=== PATIENT | male | born 1945 | race African-American/Black ===

== ENCOUNTER 2017-03-17 21:49 | Emergency (ER) | payer OTHER ==
[~2017-03-17] VITALS: Ht 165.1 cm; Wt 70.8 kg
[~2017-03-17 21:49] MED LIST: ADULT LOW DOSE81 MG PO; AMARYL4 MG PO; CITALOPRAM20 MG/10 M PO; LOPRESSOR50 PO; LOVASTAT10 PO; METFORMIN HCL500 MG PO; MOBIC7.5 MG PO; PRINIVIL20 MG PO
[2017-03-17] MEDS ORDERED: TOBRADEX ST EYE5 ML OP (23:49)
[2017-03-17] MEDS ORDERED: REFRESH CLASSI1 EACH OP (23:49)
== END 2017-03-18 00:33 | disposition home or self-care (01) ==
LOC: ER 21:49
DX: H18.821 Corneal disorder due to contact lens, right eye (principal); E11.9 Type 2 diabetes mellitus without complications; I10 Essential (primary) hypertension; F12.10 Cannabis abuse, uncomplicated; F10.99 Alcohol use, unspecified with unspecified alcohol-induced disorder; Z86.73 Personal history of transient ischemic attack (TIA), and cerebral infarction without residual deficits; Z91.041 Radiographic dye allergy status

== ENCOUNTER 2020-11-16 09:02 | Emergency (ER) | payer MEDICARE ==
[~2020-11-16] VITALS: Ht 165.1 cm; Wt 73.5 kg
[~2020-11-16 09:02] MED LIST changes: +REFRESH CLASSI1 EACH OP; +TOBRADEX ST EYE5 ML OP
[2020-11-16 09:03] VITALS: BP 149/92
[2020-11-16 09:20] LABS: ABSOLUTE NEUTROPHILS 3.6 thou/uL (1.4-8.2); WBC 5.5 thou/uL (4.0-11.0)
[2020-11-16 09:25] LABS: BASOPHILS 1.2 % (0.0-2.0); EOSINOPHILS 3.3 % (0.0-3.0); HEMATOCRIT 41.8 % (42.0-52.0); LYMPHOCYTES 23.7 % (24.0-44.0); MCH 30.4 pg (26.0-34.0); MCHC 33.6 g/dL (28.0-37.0); MCV 90.5 fL (80.0-100.0); MONOCYTES 6.6 % (1.0-8.0); PLATELET COUNT 261 thou/uL (150-400); POLYS 65.2 % (36.0-66.0); RBC 4.62 mil/uL (4.50-6.00); RDW 14.6 % (10.5-14.5)
[2020-11-16 09:34] LABS: ANION GAP 11 mmol/L (7-16); BUN 14 mg/dL (7-18); CALCIUM 9.2 mg/dL (8.5-10.1); CHLORIDE 106 mmol/L (98-107); CO2 26 mmol/L (21-32); CREATININE 1.5 mg/dL (0.7-1.3); GLUCOSE 165 mg/dL (74-106); POTASSIUM 3.8 mmol/L (3.5-5.1); SODIUM 143 mmol/L (136-145)
[2020-11-16 09:44] LABS: ALBUMIN 3.8 g/dL (3.4-5.0); SGOT 6 U/L (15-37); SGPT 12 U/L (16-63); TOTAL BILIRUBIN 0.9 mg/dL (0.2-1.0); TOTAL PROTEIN 7.7 g/dL (6.4-8.2); TROPONIN-I <0.06 ng/mL (<0.06)
[2020-11-16] MEDS ORDERED: OXYBUTYNIN 5 MG5 M2 PO (09:47)
[2020-11-16] MEDS ORDERED: GABAPENTIN 100100 MG PO (09:47)
[2020-11-16] MEDS ORDERED: CELEXA 20 MG TA20 MG PO (09:48)
[2020-11-16] MEDS ORDERED: MEVACOR10 MG PO (09:48)
[2020-11-16] MEDS ORDERED: GLIMEPIRIDE4 MG PO (09:48)
[2020-11-16] MEDS ORDERED: ALLOPURINOL 30300 M1 PO (09:48)
[2020-11-16] MEDS ORDERED: METOPROLOL SUCC50 MG PO (09:48)
[2020-11-16] MEDS ORDERED: BUSPIRONE HCL15 MG PO (09:49)
--- NOTE | 2020-11-16 16:53 | EKG ---
[place] [address] [facility] [place] [address] ELECTROCARDIOGRAM REPORT Name: AXEL BOLIVAR [id number] Admission: 11/16/20 Attend Phys: Discharge: 11/16/20 Date of : 49 Report #: [id number] [facility] ED Test Date: 2020-11-16 Test Time: 09:03:57 Pat Name: AXEL BOLIVAR Department: Room: Gender: M [employer]: AMY : 1945 Requested By: Samara Grant Order Number: [id number] MD: Glynn Brannon Measurements Intervals [place] Rate: 71 P: 23 NM: 158 QRS: -9 QRSD: 83 T: 19 QT: 390 QTc: 424 Interpretive Statements Sinus rhythm Nonspecific T wave abnormality Compared to ECG 10/01/2016 10:37:18 No significant changes Electronically Signed On 11-16-2020 16:53:31 CDT by Glynn Brannon [email or web address] <ELECTRONICALLY SIGNED> By: Glynn Brannon MD, [facility] 11/16/20 [id number] 2 Glynn Brannon MD, FACC /EPI
== END 2020-11-16 13:03 | disposition home or self-care (01) ==
LOC: ER 09:02
PROVIDERS: Student in an Organized Health Care Education/Training Program
DX: R07.89 Other chest pain (principal); E11.9 Type 2 diabetes mellitus without complications; I10 Essential (primary) hypertension; Z91.041 Radiographic dye allergy status; Z79.899 Other long term (current) drug therapy; Z79.82 Long term (current) use of aspirin; Z86.73 Personal history of transient ischemic attack (TIA), and cerebral infarction without residual deficits